=== PATIENT | female | born 1955 | race Asian ===

== ENCOUNTER → 2024-12-05 13:11 | Outpatient (REF) | payer OTHER, SELFPAY | LOC: HWWDC 13:11 | PROVIDERS: ATTENDING PHYSICIAN Student in an Organized Health Care Education/Training Program; REFERRING PHYSICIAN Surgery | DX: Z85.3 Personal history of malignant neoplasm of breast (principal) | CPT/HCPCS: 77063; 77067 ==

== ENCOUNTER 2025-03-09 20:30 | Emergency (ER) | payer OTHER, SELFPAY ==
[2025-03-09 20:33] VITALS: BP 204/115
[2025-03-09 20:57] LABS: % Basophils 0.7 % (0-2); % Eosinophils 5.1 % (0-6); % Immature Granulocytes 0.4 % (0-0.5); % Lymphocytes 35.5 % (20.5-51.1); % Monocytes 4.8 % (1.7-9.3); % Neutrophils 53.5 % (42.2-75.2); Absolute Basophils 0.1 10^3/uL (0-0.2); Absolute Eosinophils 0.5 10^3/uL (0-0.7); Absolute Lymphocytes 3.3 10^3/uL (1.2-3.4); Absolute Monocytes 0.4 10^3/uL (0.1-0.6); Absolute Neutrophils 4.9 10^3/uL (1.4-6.5); Hematocrit 37.6 % (37.0-47.0); Hemoglobin 12.3 g/dL (12.0-16.0); Mean Corp Hgb Conc. 32.7 g/dL (33.0-37.0); Mean Corpuscular Hgb 25.8 pg (27.0-31.0); Mean Corpuscular Volume 78.8 fL (81.0-99.0); Mean Platelet Volume 10.3 fL (7.4-10.4); Nucleated Red Blood Cells % 0 %; Platelet Count 309 10^3/uL (130-400); Red Blood Cell Count 4.77 10^6/uL (4.20-5.40); Red Cell Dist. Width 13.2 % (11.5-14.5); White Blood Cell Count 9.2 10^3/uL (4.8-10.8)
[2025-03-09 21:10] LABS: ALT (SGPT) 35 U/L (0-35); AST (SGOT) 28 U/L (14-36); Albumin 5.1 g/dl (3.5-5.0); Alkaline Phosphatase 63 U/L (38-126); Blood Urea Nitrogen 12 mg/dl (7-17); Calcium 10.7 mg/dl (8.4-10.2); Carbon Dioxide 28 mmol/L (22-30); Chloride 106 mmol/L (98-107); Glucose 129 mg/dl (70-99); Potassium 4.3 mmol/L (3.5-5.1); Sodium 143 mmol/L (135-145); Total Bilirubin 0.4 mg/dl (0.2-1.3); Total Protein 7.9 g/dl (6.3-8.2); eGFR > 60.00
[2025-03-09 21:22] LABS: Troponin I < 0.012 ng/ml
[2025-03-09 22:34] VITALS: BP 157/91
[2025-03-09 23:00] VITALS: BP 157/83
--- NOTE | 2025-03-09 23:20 | ED.GENMED ---
History of Present Illness
General
Chief Complaint: Blood Pressure Problem
Source: patient
Exam Limitations: none
Time Seen by Provider: 03/09/25 23:03
Nursing documentation reviewed up to this point in time: agreed with
History of Present Illness
History of Present Illness:
pt is a 70 y/o F with h/o HTN, hypothyroid
here with high blood pressure
pt has had htn for years
was on olmesartan 40 mg hs and coreg and hctz in the AM but her BP dropped low
back in october she was told to stop the coreg and the HCTZ
pt has been controlled, around 130/80-90 for months
the past several days she has had elevated readings 160/90s so she started the hctz this orning
then around 5pm she felt some burning on her L face
no headache just burning; so she took her bp and it was 220/120 and decided to come in
she feels better now
no additional meds, she did take her olmesartan this evening
denies blurry vision, neck pain, cp, sob, weakness, numbnness, facial droop, confusion
never had CP
Past History
Past History
ED Past Medical History: HTN and Hypothyroidism
Social History
Tobacco: Non-smoker
Alcohol: None
Drug: None
Personal: Single
Living: with family
Review of Systems
Review of Systems
Allergies reviewed?: Yes
All Other Systems: Not applicable
Phy Exam
Physical Exam
Physical Exam:
GENERAL: Alert , in no apparent distress, very well appearing
HEAD: NCAT
EYE: pupils equal and reactive, no nystagmus, no photophobia
NECK: Supple,full rom, nontender
ENT: o/p clr, mmm.
CARDIAC: Regular rate and rhythm . no edema
LUNGS: Clear breath sounds bilaterally, no acute respiratory distress, no wheezes/rales/rhonchi
ABDOMEN: Soft, without focal tenderness, no r/g, no cvat
NEUROLOGICAL: Alert and orientedx 4, cn intact, no facial asymmetry, 5/5 strength in UE/LE, sensation intact, romberg neg, ambulates without assistance, neg pronator drift
SKIN: Warm and dry, skin intact.
MUSCULOSKELETAL: No edema, well perfused.
PSYCH: Normal and appropriate interaction.
Course
Orders/Labs/Results
Orders:
Orders
03/09/25 20:35
Electrocardiogram (*1) Urgent
Reason for Study: Hypertension, Benign
EKG- Treatment ONCE
03/09/25 20:45
Complete Blood Count/With Diff Urgent
Comprehensive Metabolic Panel Urgent
Troponin I Urgent
03/09/25 23:19
CT Head W/o Iv Contrast Urgent
Comment:
Reason For Exam: high blood pressure, facial burning
Abnormal Lab Results
03/09/25
20:45
MCV 78.8 L fL
(81.0-99.0)
MCH 25.8 L pg
(27.0-31.0)
MCHC 32.7 L g/dL
(33.0-37.0)
Glucose 129 H mg/dl
(70-99)
Calcium 10.7 H mg/dl
(8.4-10.2)
Albumin 5.1 H g/dl
(3.5-5.0)
03/09/25 20:45
03/09/25 20:45
Vital Signs
Initial and Last Documented VS:
Initial Vital Signs
Temp Pulse Resp BP Pulse Ox
36.6 C 88 16 204/115 99
03/09/25 20:33 03/09/25 20:33 03/09/25 20:33 03/09/25 20:33 03/09/25 20:33
Last Documented Vital Signs
Temp Pulse Resp BP Pulse Ox
36.6 C 77 13 157/89 98
03/09/25 20:33 03/10/25 01:45 03/10/25 01:45 03/10/25 01:33 03/10/25 01:45
MDM/Problems Addressed
Differential Diagnosis Includes:
HYPERTENSIVE URGENCY, anxiety, tia
MDM/Problems Addressed:
70 y/o F
h/o HTN, formerly on 3 meds, down to 2 for the past 6 mo
here with elevated BP at home for th epast few days and very high bp earier tonight when she had some facial burning
it resolved and she feels fine now
no cp, vision changes, neck pain, vomiting, heaadche
she wasn't sure if it was actually anxiety that caused the high blood pressure or not
she appears well
initial bp much higher but down to 150/80
neuro intact
ekg not ischemic
neg trop
cr normal
discussed risk/benefit of CT which i felt was low yield in this setting but pt would prefer to have it done
i suspect she had hypertensive symptoms but given her bp has improved, no indication for admission
she had a very subtle ekg nonspeicif st seg but never had cp, had neg trop hours after sypmtoms started(5 pm)
ok for d/c home
continue adding the hctz 25 mg daily
*Critical Care Note
Total Time (30-74mins, 75-104mins- exclusive of procedures): Not Applicable
ED Attending Note
-
Portions of this chart may have been created with voice recognition software.� Occasional wrong word or��sound alike� substitutions may have occurred due to the inherent limitations of voice recognition software.
Discharge Plan
Departure
Patient Disposition: Home (Routine Discharge)
Date of Disposition: 03/10/25
Time of Disposition: 01:43
Patient with high blood pressure during this ER visit?: Yes
Condition: Fair
Covid-19: Not Applicable
Discharge Problem:
High blood pressure
Instructions: High Blood Pressure (DC)
Referrals:
Madelin Arguello MD, Resident [Family Provider, General] - Follow up in 2-3 days
Activity Restrictions/Additional Instructions:
Take your hydrochlorothiazide in the morning and your olmesartan at night. You can monitor your blood pressure once or twice a day and take those recordings to your doctor in the next several days. Your CAT scan was negative for any acute
findings. Your blood work was reassuring. Should you have recurrent symptoms, chest pain, shortness of breath, vision changes, severe headache along with your high blood pressure you should return to the ER. Otherwise please see your doctor
Interventions
Interventions:
*Risk Screen - Suicide Last Done: 03/10/25 01:35
*General Assessment Last Done: 03/10/25 01:35
*Neglect/Abuse Screening Last Done: 03/10/25 01:35
*ED- Fall Risk Assessment Last Done: 03/10/25 01:35
*ED COVID-19 Vaccine History Last Done: 03/10/25 01:35
*Nursing Disposition Last Done: 03/10/25 02:17
ED- Cardiac Assessment Last Done: 03/10/25 00:11
ED- Neurological Assessment Last Done: 03/10/25 00:10
ED- Pulmonary Assessment Last Done: 03/10/25 00:10
Discharge Date and Time
Discharge Date/Time: 03/10/25 02:18
Print Language: [place]
[2025-03-10 00:07] VITALS: BP 163/92
[2025-03-10 01:00] VITALS: BP 161/92
[2025-03-10 01:33] VITALS: BP 157/89
== END 2025-03-10 02:18 | disposition home or self-care (01) ==
LOC: EMR 20:30
PROVIDERS: Emergency Medicine; EMERGENCY PHYSICIAN Emergency Medicine; FAMILY PHYSICIAN Student in an Organized Health Care Education/Training Program
DX: I10 Essential (primary) hypertension (principal); E03.9 Hypothyroidism, unspecified; Z79.899 Other long term (current) drug therapy
CPT/HCPCS: 99284; 70450; 80053; 84484; 85025; 93005